=== PATIENT | male | born 1975 | race Caucasian/White ===

== ENCOUNTER 2020-05-19 13:16 | Emergency (ER) | payer OTHER ==
[~2020-05-19] VITALS: Ht 162.6 cm; Wt 88.6 kg
[~2020-05-19 13:16] MED LIST: AMBIEN 10MG10 MG PO; AMOXICILLIN 50500 MG PO; ASPIRIN 81M81 MG/TA2 PO; CEPHALEXIN500 M1 PO; COZAAR 50MG50 MG/TAB PO; FLEXERIL5 MG PO; LIORESAL20 MG PO; MITIGARE0.6 MG PO; MOTRIN 800800 MG/TAB PO; NO HOME MEDICATIONS; NORCO 325 MG-51 TAB PO; NORCO 325 MG-7.1 TAB PO
[2020-05-19 13:17] VITALS: TEMP 98.1
[2020-05-19 13:39] LABS: BASO % 0.3 % (0.0-2.0); EOS # 0.1 (0.0-0.7); EOS % 1.3 % (0-4.0); GRAN # 5.8 (1.4-6.5); GRAN % 62.2 % (42.2-75.2); HEMATOCRIT 44.2 % (42.0-52.0); HEMOGLOBIN 14.9 g/dl (13.5-18.0); LYMPH # 2.6 (1.2-3.4); LYMPH % 27.9 % (20.0-51.0); MEAN CELL VOLUME 86 fl (80.0-100.0); MEAN CORPUSCULAR HEMOGLOBIN 29 pg (27.0-31.0); MEAN CORPUSCULAR HGB CONC 34 g/dl (33.0-37.0); MEAN PLATELET VOLUME 9.3 fl (7.4-10.4); MONO # 0.8 (0.1-0.6); PLATELET COUNT 280 K/mm3 (130-400); RED BLOOD COUNT 5.12 M/mm3 (4.20-5.60)
[2020-05-19 13:41] LABS: PARTIAL THROMBOPLASTIN TIME 34.1 SECONDS (26.0-37.0)
[2020-05-19 13:44] LABS: ALANINE AMINOTRANSFERASE 82 U/L (4-49); ALBUMIN 4.9 gm/dL (3.5-5.0); ALKALINE PHOSPHATASE 95 U/L (50-136); ANION GAP 11 mmol/L (7-16); AST,SGOT 65 U/L (15-37); BILIRUBIN,TOTAL 0.7 mg/dL (0.0-1.0); BLOOD UREA NITROGEN 10 mg/dL (9-20); CARBON DIOXIDE 27 mmol/L (22-30); CHLORIDE 97 mmol/L (98-107); CREATININE, serum 0.95 (0.66-1.25); GLUCOSE 213 mg/dL (74-106); LIPASE 251 U/L (23-300); POTASSIUM 4.1 mmol/L (3.4-5.0); SODIUM 135 mmol/L (137-145); TOTAL PROTEIN 8.3 gm/dL (6.4-8.2)
[2020-05-19] MEDS ORDERED: WELLBUTRIN SR150 M1 PO (13:48)
[2020-05-19] MEDS ORDERED: ZEBETA 5MG5 MG PO (13:49)
[2020-05-19 14:03] LABS: TROPONIN-I < 0.012 ng/mL (0.000-0.035)
[2020-05-19 19:36] VITALS: BP 138/100; PULSE 68
== END 2020-05-19 19:36 | disposition short-term general hospital (02) ==
LOC: COL.ER 13:16
PROVIDERS: Emergency Medicine
DX: I77.75 Dissection of other precerebral arteries (principal); R55 Syncope and collapse; Z79.82 Long term (current) use of aspirin; Z86.73 Personal history of transient ischemic attack (TIA), and cerebral infarction without residual deficits
CPT/HCPCS: Q9967

== ENCOUNTER 2021-05-19 09:22 | Day surgery (SDC) | payer BC ==
[~2021-05-19] VITALS: Ht 162.6 cm; Wt 84.6 kg
[2021-05-19] VITALS (9 sets, daily range): BP systolic 100–137; BP diastolic 68–90; PULSE 62–81; TEMP 98.4
[~2021-05-19 09:22] MED LIST changes: +WELLBUTRIN SR150 M1 PO; +ZEBETA 5MG5 MG PO
[2021-05-19] MEDS ORDERED: GLUCOPHAGE1000 MG PO (09:43)
[2021-05-19] MEDS ORDERED: ZIAC 5/6.25MG T1 TAB PO (09:44)
[2021-05-19] MEDS ORDERED: LIPITOR 80MG80 MG PO (09:45)
[2021-05-19 10:06] LABS: HEMATOCRIT 41.9 % (42.0-52.0); HEMOGLOBIN 14.1 g/dl (13.5-18.0); MEAN CELL VOLUME 86 fl (80.0-100.0); MEAN CORPUSCULAR HEMOGLOBIN 29 pg (27.0-31.0); MEAN CORPUSCULAR HGB CONC 34 g/dl (33.0-37.0); MEAN PLATELET VOLUME 9.1 fl (7.4-10.4); PLATELET COUNT 287 K/mm3 (130-400); RED BLOOD COUNT 4.87 M/mm3 (4.20-5.60); REDCELL DISTRIBUTION WIDTH-CV 13.4 % (11.5-14.5)
[2021-05-19 10:13] LABS: PROTHROMBIN TIME 11.2 SECONDS (9.7-12.8)
[2021-05-19 10:15] LABS: PARTIAL THROMBOPLASTIN TIME 30.2 SECONDS (26.0-37.0)
[2021-05-19 10:16] LABS: CALCIUM 9.7 mg/dL (8.4-10.2); CREATININE, serum 0.86 (0.66-1.25); POTASSIUM 4.2 mmol/L (3.4-5.0)
--- NOTE | 2021-05-19 12:00 | NUR ---
Report from Babs ANTUNEZ. Transferred from [employer] by bed. Right Tband with 12 cc air CD&I, good pulses and cap refill < 3 secs noted. VSS. bedside. Ordering lunch
--- NOTE | 2021-05-19 14:02 | NUR ---
Right tband released of 12 cc air and dressing applied. INT discontinued intact. Discharge instructions given.
--- NOTE | 2021-05-19 14:09 | NUR ---
Tranferred to private car by Mansi ANTUNEZ
== END 2021-05-19 14:10 | disposition home or self-care (01) ==
LOC: COL.CAR 09:22
PROVIDERS: Internal Medicine Cardiovascular Disease
DX: I47.2 Ventricular tachycardia (principal); I10 Essential (primary) hypertension; I44.1 Atrioventricular block, second degree; E11.9 Type 2 diabetes mellitus without complications; Z95.0 Presence of cardiac pacemaker; Z20.822 Contact with and (suspected) exposure to COVID-19; Z72.0 Tobacco use; Z79.82 Long term (current) use of aspirin
CPT/HCPCS: C1769; J1644; J2250; J3010; Q9967